=== PATIENT | female | born 1935 | race Caucasian/White ===

== ENCOUNTER 2019-05-06 16:36 | Inpatient (IN) ==
[2019-05-06 18:12] LABS: Basophils % 0.2 %; Eosinophils % 0.2 %; Hematocrit 39.3 % (35.3-44.9); Hemoglobin 13.1 g/dL (11.5-15.4); Immature Granulocytes % 0.5 % (0-4); Lymphocytes # 0.8 K/mcL (0.6-4.6); Lymphocytes % 6.5 %; Mean Corpuscular HGB Conc 33.3 g/dL (31.6-35.5); Mean Corpuscular Hemoglobin 31.7 pg (28.0-33.3); Mean Corpuscular Volume 95.2 fL (83.0-100.0); Mean Platelet Volume 10.4 fL (9.4-12.4); Monocytes # 1.1 K/mcL (0.0-1.3); Monocytes % 8.2 %; Neutrophils # 10.8 K/mcL (1.6-8.9); Platelet Count 216 K/mcL (140-400); Red Blood Count 4.13 M/mcL (3.82-4.97); Red Cell Distribution Width 12.6 % (11.5-14.5); Segmented Neutrophils % 84.4 %; White Blood Count 12.9 K/mcL (4.3-11.1)
[2019-05-06 18:29] LABS: BUN/Creatinine Ratio 19 (6-26); Blood Urea Nitrogen 23 mg/dL (8-23); Calcium 9.2 mg/dL (8.6-10.3); Carbon Dioxide 25 mEq/L (23-29); Chloride 106 mEq/L (98-107); Glucose 70 mg/dL (70-105); Osmolality,Calculated 294 (280-300); Potassium 3.7 mEq/L (3.5-5.1); Sodium 141 mEq/L (136-145); eGFR For African Americans 52 (> 60); eGFR For Non-African Americans 43 (> 60)
[2019-05-06 18:31] LABS: Prothrombin Time 11.6 Seconds (9.4-12.1)
[2019-05-06 19:01] LABS: Troponin I < 0.03 ng/mL (< 0.04)
[2019-05-06] MEDS ORDERED: *HR* FentaNYL (PF) 100 MCG/2 ML VIAL IVP STA (19:32)
[2019-05-06] MEDS ORDERED: tiZANidine 4 MG TABLET PO ONE (23:13)
[2019-05-06] MEDS ORDERED: *HR* OxyCODONE Immed Rel 5 MG TABLET PO ONE (23:15)
[2019-05-07] MEDS ORDERED: Naloxone 0.4 MG/ML INJ IVP PRN ×2 (02:28→17:52)
[2019-05-07] MEDS ORDERED: *HR* OxyCODONE Immed Rel 5 MG TABLET PO PRN (02:28)
[2019-05-07] MEDS ORDERED: Acetaminophen 325 MG TABLET PO PRN ×2 (02:28→17:52)
[2019-05-07] MEDS ORDERED: D5% in Water 1,000 ML IVC PRN ×2 (02:38→17:52)
[2019-05-07] MEDS ORDERED: *HR* Dextrose 50 % in Water (Syg) 50 ML SYRINGE IVP PRN ×2 (02:38→17:52)
[2019-05-07] MEDS ORDERED: Dextrose Gel 15 GM/37.5 ML TUBE PO PRN ×4 (02:38→17:52)
[2019-05-07 06:54] LABS: Hemoglobin 13.6 g/dL (11.5-15.4); Mean Corpuscular HGB Conc 33.2 g/dL (31.6-35.5); Mean Corpuscular Hemoglobin 30.9 pg (28.0-33.3); Mean Corpuscular Volume 93.2 fL (83.0-100.0); Mean Platelet Volume 10.2 fL (9.4-12.4); Platelet Count 204 K/mcL (140-400); Red Cell Distribution Width 12.7 % (11.5-14.5); White Blood Count 7.8 K/mcL (4.3-11.1)
[2019-05-07 07:13] LABS: Magnesium 1.7 mg/dL (1.6-2.6); Phosphorous 3.2 mg/dL (2.7-4.5); Potassium 4.5 mEq/L (3.5-5.1)
[2019-05-07 09:19] LABS: Estimated Average Glucose 217 mg/dl
[2019-05-07] MEDS: Insulin LISPRO 300 UNITS/3 ML VIAL SQ SCH ×3 (09:20→18:15)
[2019-05-07] MEDS ORDERED: Albuterol 2.5 MG/3 ML NEBULIZER IH ONE ×2 (15:44→17:52)
[2019-05-07] MEDS ORDERED: Acetaminophen IV 1,000 MG/100 ML INFUS..BTL ONE (15:45)
[2019-05-07] MEDS ORDERED: Famotidine 20 MG/2 ML VIAL ONE (15:45)
[2019-05-07] MEDS ORDERED: Albuterol 2.5 MG/3 ML NEBULIZER ONE (15:48)
[2019-05-07] MEDS ORDERED: Clindamycin 900 MG/50 ML 900 MG/50 ML IV.SOLN IVPB ONE (15:48)
[2019-05-07] MEDS ORDERED: *HR* Propofol 200 MG/20 ML VIAL IVP ONE (16:03)
[2019-05-07] MEDS ORDERED: *HR* FentaNYL (PF) 100 MCG/2 ML VIAL ONE (16:03)
[2019-05-07] MEDS ORDERED: Lidocaine -MPF 2% 2 ML VIAL ONE (16:04)
[2019-05-07] MEDS ORDERED: Ondansetron 4 MG/2 ML VIAL ONE (16:04)
[2019-05-07] MEDS ORDERED: *HR* PHENYLEPHRINE 1,000 MCG/10 ML SYRINGE IVP ONE (16:19)
[2019-05-07] MEDS ORDERED: Dexamethasone 4 MG/ML VIAL ONE (16:31)
[2019-05-07] MEDS ORDERED: Morphine Sulfate 2 MG/ML SYRINGE IVP PRN ×2 (16:32→17:52)
[2019-05-07] MEDS ORDERED: Ondansetron 4 MG/2 ML VIAL IVP ONE ×2 (16:32→17:52)
[2019-05-08] MEDS: Clindamycin 900 MG/50 ML 900 MG/50 ML IV.SOLN IVPB SCH ×2 (00:54→09:22)
[2019-05-08] MEDS: *HR* OxyCODONE Immed Rel 5 MG TABLET PO PRN (00:54)
[2019-05-08] MEDS: Insulin LISPRO 300 UNITS/3 ML VIAL SQ SCH ×4 (01:00→17:16)
[2019-05-08 05:10] LABS: Hematocrit 37.5 % (35.3-44.9); Hemoglobin 12.3 g/dL (11.5-15.4); Mean Corpuscular HGB Conc 32.8 g/dL (31.6-35.5); Mean Corpuscular Hemoglobin 32.1 pg (28.0-33.3); Mean Corpuscular Volume 97.9 fL (83.0-100.0); Platelet Count 194 K/mcL (140-400); Red Blood Count 3.83 M/mcL (3.82-4.97); Red Cell Distribution Width 12.4 % (11.5-14.5); White Blood Count 8.6 K/mcL (4.3-11.1)
[2019-05-08 05:23] LABS: Calcium 8.3 mg/dL (8.6-10.3); Potassium 4.5 mEq/L (3.5-5.1)
[2019-05-08] MEDS: 0.9 % Sodium Chloride 1,000 ML IVC SCH ×2 (13:21→17:17)
[2019-05-08] MEDS ORDERED: Insulin LISPRO 300 UNITS/3 ML VIAL SQ SCH (22:30)
[2019-05-09 03:21] LABS: Hematocrit 36.1 % (35.3-44.9); Hemoglobin 11.5 g/dL (11.5-15.4); Mean Corpuscular HGB Conc 31.9 g/dL (31.6-35.5); Mean Corpuscular Hemoglobin 31.7 pg (28.0-33.3); Mean Corpuscular Volume 99.4 fL (83.0-100.0); Mean Platelet Volume 10.6 fL (9.4-12.4); Platelet Count 207 K/mcL (140-400); Red Blood Count 3.63 M/mcL (3.82-4.97); Red Cell Distribution Width 12.8 % (11.5-14.5); White Blood Count 9.4 K/mcL (4.3-11.1)
[2019-05-09 03:42] LABS: Calcium 8.3 mg/dL (8.6-10.3); Potassium 4.8 mEq/L (3.5-5.1)
[2019-05-09] MEDS: 0.9 % Sodium Chloride 1,000 ML IVC SCH (06:23)
[2019-05-09] MEDS ORDERED: *HR* Heparin 5,000 UNIT/ML VIAL SQ SCH (08:45)
[2019-05-09] MEDS: Insulin LISPRO 300 UNITS/3 ML VIAL SQ SCH ×2 (10:11→12:19)
[2019-05-09] MEDS: *HR* OxyCODONE Immed Rel 5 MG TABLET PO PRN (10:12)
[2019-05-09 11:04] VITALS: BP 143/73
== END 2019-05-09 16:30 | DRG 481 ==
LOC: EMEROOARM 16:36 → 3NENU 16:36
PROVIDERS: ADMIT Internal Medicine; ATTEND Internal Medicine